=== PATIENT | female | born 1945 | race Caucasian/White ===

== ENCOUNTER 2017-12-08 06:56 | Inpatient (IN) ==
[2017-11-27 18:14] LABS: Blood Urea Nitrogen 19 mg/dl (8-23)
[2017-11-27 18:16] LABS: Basophils # (Auto) 0 K/mcL (0.0-0.3); Basophils % (Auto) 0.7 % (0.0-2.0); Eosinophils # (Auto) 0.1 K/mcL (0.0-0.7); Eosinophils % (Auto) 1.3 % (0.0-7.0); Lymphocytes % (Auto) 31.5 % (15.5-49.0); Mean Corpuscular HGB Conc 32.2 g/dL (31.0-36.0); Mean Corpuscular Hemoglobin 26.8 pg (26.0-34.0); Monocytes # (Auto) 0.4 K/mcL (0.1-0.9); Monocytes % (Auto) 6.5 % (1.0-12.0); Platelet Count 412 K/mcL (140-440); RBC 5.01 M/mcL (4.00-5.20); Red Cell Distribution Width 15.5 % (11.5-14.5)
[2017-11-27 19:05] LABS: Appearance,Urine HAZY; Bacteria,Urine FEW /hpf (0); Bilirubin,Urine NEG (NEG); Color,Urine YELLOW; Glucose,Urine (UA) NEGATIVE (NEG); Leukocyte Esterase,Urine 250 /uL (NEG); Mucus,Urine MOD /hpf (0); Protein,Urine NEG (NEG); Urine Blood NEG mg/dL (<0.03); Urine RBC 1 /hpf (0-1); Urine Squamous Epithelial Cell 14 /hpf (0-4); Urine Transitional Epi Cells < 1 /hpf (0-2); Urine WBC 10 /hpf (0-4); Urobilinogen,Urine NEG (NEG)
[2017-12-08] MEDS ORDERED: ceFAZolin 1 GM VIAL IV SCH (07:00)
[2017-12-08] MEDS ORDERED: PREGABALIN 75 MG CAPSULE PO SCH (07:00)
[2017-12-08] MEDS ORDERED: CELECOXIB 200 MG CAPSULE PO SCH (07:00)
[2017-12-08] MEDS: oxyCODONE 10 MG TAB.ER.12H PO SCH ×2 (07:58→12:34)
[2017-12-08] MEDS ORDERED: KETAMINE 100 MG/ML ML IV ONE (09:25)
[2017-12-08] MEDS ORDERED: TRANEXAMIC ACID 1,000 MG/10 ML VIAL IV ONE (09:25)
[2017-12-08] MEDS ORDERED: PROPOFOL 200 MG/20 ML VIAL IV ONE (09:25)
[2017-12-08] MEDS ORDERED: fentaNYL 100 MCG/2 ML VIAL IV ONE (09:25)
[2017-12-08] MEDS ORDERED: ePHEDrine 50 MG/ML AMPUL IV ONE (09:25)
[2017-12-08] MEDS ORDERED: GLYCOPYRROLATE 0.2 MG/ML VIAL IV ONE (09:25)
[2017-12-08] MEDS ORDERED: SUCCINYLCHOLINE 20 MG/ML ML IV ONE (09:25)
[2017-12-08] MEDS ORDERED: LIDOCAINE HCL/PF 100 MG/5 ML SYRINGE IV ONE (09:25)
[2017-12-08] MEDS ORDERED: ONDANSETRON 4 MG/2 ML VIAL IV ONE (09:25)
[2017-12-08] MEDS ORDERED: MIDAZOLAM 2 MG/2 ML VIAL IV ONE (09:25)
[2017-12-08] MEDS ORDERED: DEXAMETHASONE 10 MG/ML VIAL IV ONE (09:25)
[2017-12-08] MEDS ORDERED: GENTAMICIN SULFATE 800 MG/20 ML VIAL IR ONE (09:44)
[2017-12-08] MEDS ORDERED: HYDROmorphone 2 MG/ML VIAL IV PRN (10:08)
[2017-12-08] MEDS ORDERED: FLUMAZENIL 0.1 MG/ML ML IV PRN (10:08)
[2017-12-08] MEDS ORDERED: NALOXONE HCL 0.4 MG/ML VIAL IV PRN (10:08)
[2017-12-08] MEDS ORDERED: ACETAMINOPHEN 1,000 MG/100 ML BOTTLE IV ONE (10:08)
[2017-12-08] MEDS ORDERED: METOPROLOL TARTRATE 5 MG/5 ML VIAL IV PRN (10:08)
[2017-12-08] MEDS ORDERED: MEPERIDINE 25 MG/ML SYRINGE IV PRN (10:08)
[2017-12-08] MEDS ORDERED: ePHEDrine 50 MG/ML AMPUL IV PRN (10:08)
[2017-12-08] MEDS ORDERED: diphenhydrAMINE 50 MG/ML VIAL IV PRN (10:08)
[2017-12-08] MEDS ORDERED: ONDANSETRON 4 MG/2 ML VIAL IV PRN ×2 (10:08→10:36)
[2017-12-08] MEDS ORDERED: IPRATROPIUM/ALBUTEROL 3 ML AMPUL.NEB NEB PRN (10:08)
[2017-12-08] MEDS ORDERED: ATROPINE SULFATE 0.4 MG/ML VIAL IV PRN (10:08)
[2017-12-08] MEDS ORDERED: fentaNYL 100 MCG/2 ML VIAL IV PRN (10:08)
[2017-12-08] MEDS ORDERED: PROMETHAZINE 25 MG/ML VIAL IV PRN (10:08)
[2017-12-08] MEDS ORDERED: METHOCARBAMOL 1,000 MG/10 ML VIAL IV PRN (10:08)
[2017-12-08] MEDS ORDERED: LACTATED RINGERS 1,000 ML IV SCH (10:15)
--- NOTE | 2017-12-08 10:35 | Brief Operative Note ---
Date of procedure: 12/08/17 Pre-op diagnosis: right hip oa Post-op diagnosis: same Procedure: right total hip arthroplasty Grafts/Implants: Yes Anesthesia: spinal Complications: none Surgeon: Yovani Nicholas Scale Balancer: Kandy Fox Estimated blood loss (cc): 150 Specimens Removed/Pathology: none sent Condition: stable Disposition: PACU
[2017-12-08] MEDS ORDERED: POLYETHYLENE GLYCOL 3350 17 GM PACKET PO PRN (10:36)
[2017-12-08] MEDS ORDERED: BENZOCAINE/MENTHOL 1 LOZENGE PO PRN (10:36)
[2017-12-08] MEDS ORDERED: KETOROLAC 15 MG/ML VIAL IV PRN (10:36)
[2017-12-08] MEDS ORDERED: MAGNESIUM HYDROXIDE 30 ML ORAL.SUSP PO PRN (10:36)
[2017-12-08] MEDS ORDERED: BISACODYL 10 MG SUPP.RECT PR PRN (10:36)
[2017-12-08] MEDS ORDERED: FLEETS ADULT ENEMA PR PRN (10:36)
[2017-12-08] MEDS ORDERED: TRANEXAMIC ACID 1,000 MG/10 ML VIAL IV SCH (10:36)
[2017-12-08] MEDS ORDERED: ONDANSETRON ODT 4 MG TABLET SL PRN (10:36)
--- NOTE | 2017-12-08 11:41 | XRay Report ---
CLINICAL INFORMATION: Post-op Total Hip COMPARISON: None. FINDINGS: Right total hip prostheses is anatomically aligned. No osseous abnormality. Mild degenerative change both SI and left hip joints and moderate L4-5 and L5-S1 degenerative disc disease. Soft tissue swelling over the surgical site seen - as expected IMPRESSION: Right total hip prostheses in anatomic alignment. Degenerative changes as described Interpreted and Authenticated by: Yovani Henry 12/08/17
[2017-12-08] MEDS ORDERED: 0.9 % SODIUM CHLORIDE 250 ML IV SCH (12:00)
[2017-12-08] MEDS: 0.9 % SODIUM CHLORIDE 1,000 ML IV SCH ×2 (13:07→18:30)
[2017-12-08] MEDS: 0.9 % SODIUM CHLORIDE 10 ML SYRINGE IV SCH ×2 (13:08→21:16)
[2017-12-08] MEDS: METHOCARBAMOL 750 MG TABLET PO PRN ×2 (13:16→23:37)
--- NOTE | 2017-12-08 15:49 | Operative Note ---
DATE OF OPERATION: 12/08/2017 PREOPERATIVE DIAGNOSIS: Degenerative joint disease, right hip. POSTOPERATIVE DIAGNOSIS: Degenerative joint disease, right hip. PROCEDURE: Right total hip arthroplasty. SURGEON: Trixie Nicholas M.D. OIL WELL SERVICES SUPERVISOR SURGEON: Kandy Fox PA-C. ANESTHESIA: Spinal with LMA assist. ESTIMATED BLOOD LOSS: 150 mL. COMPLICATIONS: None noted. SPECIMENS REMOVED: None. DRAINS: None. IMPLANTS: DePuy Loma Gription acetabular shell, 54 mm diameter; DePuy Loma Altrx polyethylene acetabular liner lipped, 32 x 54; DePuy Actis femoral stem, size 8, standard collar; DePuy Sandy Hole Eliminator PS; DePuy Biolox delta ceramic femoral head, +1, 32 mm diameter. INDICATIONS: The patient has had a longstanding history of worsening pain in the hip that has failed conservative treatment. Radiographs have confirmed advanced degenerative joint disease. After a long discussion about treatment options, the patient elected to proceed with a hip arthroplasty. The risks and benefits were discussed with the patient in detail including, but not limited to, the risks of anesthesia, problems with the heart or lungs related to anesthesia, infection, compromise or injury to the nerves and blood vessels, deep venous thrombosis, pulmonary embolism, pneumonia, continued pain after surgery, worsening pain or symptoms after surgery, swelling, loss of motion, instability, leg length discrepancy, and need for repeat surgery. DESCRIPTION OF PROCEDURE: The patient was seen in pre-anesthesia waiting room where all questions were answered and the correct side and site were identified and marked. The patient was then brought to the operating room and administered the anesthetic and given pre-operative antibiotics. A time-out was then called. The patient was placed in the lateral decubitus position with all prominences well-padded using the Jimmy frame and the extremity was prepped and draped in the usual sterile fashion. Anesthesia gave the patient 1 gram of tranexamic acid via an intravenous route. A standard posterior approach was made. We dissected through the skin and subcutaneous tissue to the deep fascia. The deep fascia was split in line with the incision and a Charnley retractor was placed. We exposed, tagged, and incised the short external rotators and piriformis tendon and retracted them posteriorly to help protect the sciatic nerve which was palpated throughout the case. We then performed a T-capsulotomy and tagged the capsule edges. Prior to dislocating the hip, we set a length and offset gauge from a Steinmann pin in the iliac wing to a kaitlyn on the greater trochanter. The hip was then dislocated and a femoral neck osteotomy was performed to the pre-surgical templated level off the lesser trochanter. The head was removed and sized. We next turned our attention to the acetabulum. Retractors were placed for optimal visualization. A complete labral excision was performed. The capsule was preserved for later closure. We began reaming using anatomic landmarks with the DePuy Loma acetabular system. We medialized the cup and reamed up to provide good fill and coverage of the trial. When the trial was stable and appropriately positioned with approximately 20 degrees of anteversion and 45 degrees of abduction, we impacted the DePuy Loma cup and placed a cancellous screw in the posterior-superior quadrant. Osteophytes were removed from around the shell. We placed the trial liner and turned our attention to the femur. We placed retractors for visualization, internally rotated the femur, and established intramedullary access. We broached using the DePuy Actis stem to a stable platform medial, lateral, and rotationally with the appropriate version. We then performed a calcar reaming off the broach. Trials were then placed and optimized for leg length and stability. We used the leg length and offset guide to confirm our trials. Best stability, length, and offset characteristics were obtained with these sizes. We removed all trials and impacted the polyethylene acetabular liner in a standard fashion after a thorough irrigation. We then impacted the femoral stem to its broached location and placed the head. Final reduction was performed. Again, good stability, leg length, and offset characteristics were noted. We irrigated with three liters of antibiotic saline. We closed the capsule with #2 FiberWire. We closed the fascia with a combination of #2 Stratafix and #0 Vicryl. We closed the subcutaneous tissue and skin in layers out to Dermabond on the skin. A sterile pressure dressing and abduction wedge was applied. All needle and sponge counts were correct. The patient was transferred to the recovery room in stable condition. NASRIN:laurel Job ID: [id number] Doc ID: [id number] Trixie Nicholas MD
[2017-12-08] MEDS: ceFAZolin 1 GM VIAL IV SCH (17:10)
[2017-12-08] MEDS: HYDROcodone/APAP 10/325MG TABLET PO PRN ×3 (18:09→23:37)
[2017-12-08] MEDS: ASPIRIN 325 MG ENTERIC COATED TABLET PO SCH (20:38)
[2017-12-08] MEDS: DOCUSATE SODIUM 100 MG CAPSULE PO SCH (20:39)
[2017-12-08] MEDS ORDERED: SENNOSIDES 1 TABLET PO SCH (21:00)
[2017-12-09] MEDS: ceFAZolin 1 GM VIAL IV SCH (01:11)
[2017-12-09] MEDS: 0.9 % SODIUM CHLORIDE 1,000 ML IV SCH (02:45)
[2017-12-09] MEDS: HYDROcodone/APAP 10/325MG TABLET PO PRN ×2 (03:06→08:24)
[2017-12-09] MEDS: 0.9 % SODIUM CHLORIDE 10 ML SYRINGE IV SCH (05:30)
--- NOTE | 2017-12-09 07:28 | Orthopedic Progress Note ---
Subjective Patient information: Note initiated : 12/09/17 at 7:27 am Service Date, if different from initiated Date: [] Patient: Nela Mabry 72 y/o F admitted on 12/08/17 for Right Total Hip Arthroplasty. Chief Complaint: [] Interval history: doing well. no complaints Objective Vital signs: Vital Signs Temp Pulse Resp BP BP Pulse Ox 12/09/17 04:00 97.8 F 57 L 14 98/55 95 12/09/17 00:00 97.4 F 58 L 14 107/62 96 12/08/17 20:00 97.4 F 64 16 126/71 98 12/08/17 17:09 85 12/08/17 16:04 85 12/08/17 15:47 97.1 F 85 14 110/71 97 12/08/17 14:19 68 12/08/17 13:53 78 118/70 98 12/08/17 13:37 67 134/73 98 12/08/17 13:23 72 127/74 98 12/08/17 13:08 59 L 123/76 98 12/08/17 12:53 58 L 130/77 95 12/08/17 12:38 60 120/75 99 12/08/17 12:23 62 136/77 99 12/08/17 12:08 63 135/78 98 12/08/17 11:52 71 136/78 98 12/08/17 11:33 97.1 F 68 12 114/55 100 12/08/17 11:16 73 16 102/47 98 12/08/17 11:11 80 20 124/87 100 12/08/17 11:06 88 15 120/67 100 12/08/17 11:01 97.7 F 79 16 109/54 100 12/08/17 08:00 98.7 F 58 L 16 127/71 99 Intake and Output 12/08/17 12/09/17 12/09/17 21:59 05:59 13:59 Intake Total 673 / 673 1450 / 1450 Output Total 2795 / 2795 950 / 950 Balance -2121 / -2121 500 / 500 Intake: IV 673 / 673 1000 / 1000 Sodium Chloride 0.9% 1,000 ml @ 673 / 673 1000 / 1000 125 mls/hr IV .Q8H [facility] Rx#: [id number] Oral 450 / 450 Output: Void Amount 2795 / 2795 950 / 950 Other: Urine Appearance Clear Clear Urine Color Pale Pale Urine Odor Normal # Voids 1 Weight 188 lb Intake & Output: Intake & Output 12/08/17 12/09/17 12/09/17 21:59 05:59 13:59 Intake Total 673 / 673 1450 / 1450 Output Total 2795 / 2795 950 / 950 Balance -2122 / -2122 500 / 500 Weight 188 lb Intake: IV 673 / 673 1000 / 1000 Sodium Chloride 0.9% 1,000 ml @ 673 / 673 1000 / 1000 125 mls/hr IV .Q8H [facility] Rx#: [id number] Oral 450 / 450 Output: Void Amount 2795 / 2795 950 / 950 Other: Urine Appearance Clear Clear Urine Color Pale Pale Urine Odor Normal # Voids 1 Incision: Yes healing Incision clean and dry: Yes Dressing: Yes clean, Yes dry, Yes intact Weight bearing status: full Neurological exam IM: Yes abnormal gait, Yes alert, Yes oriented X3, Yes motor sensory intact, Yes neurovascular intact Extremities exam IM: No calf tenderness, Yes neurovascular intact - Labs CBC & BMP: 12/09/17 04:22 11/27/17 13:38 Labs: Orthopedic Labs 11/27/17 13:38 PT 13.1 INR 1.0 12/09/17 11/27/17 04:22 13:39 Hgb 9.6 L 13.4 Hct 29.7 L 41.6 Assessment and Plan (1) Hip osteoarthritis pod 1 s/p terrance wbat pain control dvt prophylaxis dc planning Status: Acute
--- NOTE | 2017-12-09 07:29 | Discharge Summary ---
Ortho Discharge - [facility] - Patient Instructions Diet: Regular Diet Activity: ambulate with assistive device, weight bearing as tolerated Total Hip Protocol: Follow activity instructions as provided by Physical Therapy. Dressing Care: May shower in 2 days - Problem Maintenance (1) Hip osteoarthritis Status: Acute - Follow Up Plan Follow Up Appointments: Kandy Fox PA-C [Physician Well Service Pump Equipment Operator] - 12/23/17 9:40 am Disposition: Home, Self-Care Prognosis: Good Rehab Potential: Good I certify that the patient requires SNF services: No Overall status at discharge: patient is progressing back to baseline
[2017-12-09] MEDS ORDERED: LEVOTHYROXINE 88 MCG TABLET PO SCH (07:30)
[2017-12-09] MEDS: METHOCARBAMOL 750 MG TABLET PO PRN (08:24)
[2017-12-09] MEDS: ASPIRIN 325 MG ENTERIC COATED TABLET PO SCH (08:28)
[2017-12-09] MEDS: DOCUSATE SODIUM 100 MG CAPSULE PO SCH (08:29)
[2017-12-09] MEDS ORDERED: DOCUSATE SODIUM 100 MG CAPSULE PO SCH (09:00)
[2017-12-09] MEDS ORDERED: ESCITALOPRAM 10 MG TABLET PO SCH (09:00)
== END 2017-12-09 10:15 | disposition home or self-care (01) | DRG 470 ==
LOC: MEDSUR 06:56
PROVIDERS: ADMIT Orthopaedic Surgery Sports Medicine; ATTEND Orthopaedic Surgery Sports Medicine
CPT/HCPCS: 62322; 73502; 97161; C1776; J0131; J0330; J0690; J1100; J1580; J1885; J2001; J2250; J2405; J3010; J7030; J7120